=== PATIENT | male | born 1995 | race Caucasian/White ===

== ENCOUNTER 2016-07-12 17:30 | Emergency (ER) | payer BC ==
[~2016-07-12] VITALS: Ht 190.5 cm; Wt 73.5 kg
[2016-07-12 17:53] VITALS: BP 143/94; PULSE 82; RESP 16; TEMP 98.1; O2SAT 100
[2016-07-12 18:14] LABS: BLOOD, URINE NEG (NEG); GLUCOSE,URINE NEG (NEG); KETONE, URINE NEG (NEG); NITRITE,URINE NEG (NEG)
[2016-07-12 18:22] LABS: METHOD OF COLLECTION CLEAN CATCH; URINE COLOR YELLOW (YELLW/STRAW)
[2016-07-12 18:23] LABS: COMMENT (UR) CULT NOT INDICATED; CULTURE IF INDICATED CULT NOT INDICATED; WBC, URINE 0-2 /hpf (0-5)
--- NOTE | 2016-07-12 19:58 | PD ---
HPI Chief Complaint: Complaint Time Seen by Provider: 19:42 Travel History International Travel<30 days: No Contact w/Intl Traveler<30days: No Traveled to known affect area: No History of Present Illness HPI The patient is a 20-year-old male who presents emergency department for left flank pain of several weeks' duration. The patient has pain that radiates from the left flank down into the left scrotum. The patient's pain is intermittent, occasionally associated with dysuria, but he denies any penile discharge. He also complains of pain located over the top the left testicle which is intermittent, but denies any trauma to the left testicle. The patient was sexually active 4 weeks ago, but denies any sexual activity the week prior to the onset of his symptoms. The patient denies any testicular trauma, nausea , vomiting, or abdominal pain. Symptoms are moderate, no alleviating or exacerbating factors. PFSH Past Medical History Medical other: Yes ([place] teeth removed) Tetanus Vaccination: > 5 Years Past Surgical History Tonsillectomy: Yes Social History Alcohol Use: Yes (occ) Tobacco Use: No Substance Use: No Allergies-Medications (Allergen,Severity, Reaction): Coded Allergies: No Known Allergies (Unverified , 07/12/16) Reported Meds & Prescriptions Reported Meds & Active Scripts Active No Active Prescriptions or Reported Medications Review of Systems Except as stated in HPI: all other systems reviewed are Neg General / Constitutional: No: Fever, Chills Cardiovascular: No: Chest Pain or Discomfort Respiratory: No: Shortness of Breath Gastrointestinal: No: Nausea, Vomiting, Diarrhea, Abdominal Pain Genitourinary: Positive: Dysuria, Flank Pain, No: Urgency, Frequency, Hematuria, Discharge Musculoskeletal: No: Myalgias, Arthralgias Skin: No Rash Physical Exam Narrative GENERAL: Awake, alert, pleasant 20-year-old male who appears his stated age is in no acute respiratory distress. SKIN: Warm and dry. HEAD: Atraumatic. Normocephalic. EYES: No injection or drainage. ENT: No nasal bleeding or discharge. Mucous membranes pink and moist. NECK: Trachea midline. No JVD. GASTROINTESTINAL: Abdomen soft, non-tender, nondistended. Back: No CVA tenderness. Genitourinary: Circumcised phallus. No tenderness of the right testicle or right epididymis. Left testicle demonstrates no obvious mass, mild tenderness over the head of the testicle as well as the epididymis, but no erythema noted. MUSCULOSKELETAL: No obvious deformities. No clubbing. No cyanosis. No edema. NEUROLOGICAL: Awake and alert. No obvious cranial nerve deficits. Motor grossly within normal limits. Normal speech. PSYCHIATRIC: Appropriate mood and affect; insight and judgment normal. Data Data Last Documented VS Vital Signs Date Time Temp Pulse Resp B/P Pulse Ox O2 Delivery O2 Flow Rate FiO2 07/12/16 21:00 67 17 145/75 99 Room Air 07/12/16 17:53 98.1 Orders Urinalysis - C+S If Indicated (07/12/16 18:00) Ct Abd/Pel W/O Iv Contrast (07/12/16 19:48) Us Testicles W Doppler (07/12/16 19:48) Sodium Chloride 0.9% Flush (Ns Flush) (07/12/16 20:00) Gc And Chlamydia Pcr (07/12/16 19:58) Labs Laboratory Tests Test 07/12/16 17:55 Urine Collection Type CLEAN CATCH Urine Color YELLOW Urine Turbidity CLEAR Urine pH 7.0 Urine Specific [place] 1.010 Urine Protein NEG mg/dL Urine Glucose (UA) NEG mg/dL Urine Ketones NEG mg/dL Urine Occult Blood NEG Urine Nitrite NEG Urine Bilirubin NEG Urine Leukocyte Esterase NEG Urine WBC 0-2 /hpf Microscopic Urinalysis Comment CULT NOT INDICATED MDM Medical Decision Making Medical Screen Exam Complete: Yes Emergency Medical Condition: Yes Medical Record Reviewed: Yes Interpretation(s) Last Impressions Abdomen/Pelvis CT 07/12/161947 Signed Impressions: Service Date/Time: Tuesday, July 12, 2016 20:01 - CONCLUSION: 1. No acute findings. Mild constipation. No renal or ureteral calculi identified. No evidence for obstructive uropathy. Yaw Hanks MD Laboratory Tests Test 07/12/16 17:55 Urine Collection Type CLEAN CATCH Urine Color YELLOW Urine Turbidity CLEAR Urine pH 7.0 Urine Specific [place] 1.010 Urine Protein NEG mg/dL Urine Glucose (UA) NEG mg/dL Urine Ketones NEG mg/dL Urine Occult Blood NEG Urine Nitrite NEG Urine Bilirubin NEG Urine Leukocyte Esterase NEG Urine WBC 0-2 /hpf Microscopic Urinalysis Comment CULT NOT INDICATED Ultrasound reveals positive testicular blood flow without evidence for torsion. Tiny cyst in the right testicle and epididymis bilaterally. Differential Diagnosis Differential diagnosis includes urethritis, chlamydia infection, gonorrhea infection, epididymitis, testicular torsion, nephrolithiasis, hydronephrosis. Narrative Course UA was sent to lab, was negative. Gonorrhea and chlamydia PCR was ordered. CT of the abdomen and pelvis without contrast an ultrasound of the left testicle was ordered. Diagnosis Primary Impression: Urethritis Patient Instructions: General Instructions Additional Instructions: Medications as directed. Follow-up with urology if symptoms persist. Tylenol and or Motrin as needed. Please provide the patient a copy of his UA results, CT results, and ultrasound results at discharge. Med/Other Pt SpecificInfo: Prescription(s) given Scripts Doxycycline (Monohydrate) (Doxycycline Monohydrate)100 Mg Tab1 Tab PO BID 10 Days Prov:Saravanan Oseguera MD 07/12/16 Disposition: 01 DISCHARGE HOME Condition: Stable Saravanan Oseguera MD Jul 12, 2016 19:57
[2016-07-12] MEDS ORDERED: SODIUM CHLORIDE 0.9% FLUSH 5 ML FLUSH IVF PRN ×2 (20:00→22:30)
--- NOTE | 2016-07-12 20:39 | RADHPO ---
EXAM DATE/TIME: 07/12/2016 20:01 [facility] COMPARISON: No previous studies available for comparison. INDICATIONS : Left sided flank pain. ORAL CONTRAST: No oral contrast ingested. RADIATION DOSE: 8.85 CTDIvol (mGy) MEDICAL HISTORY : None SURGICAL HISTORY : None. ENCOUNTER: Initial ACUITY: 2 weeks PAIN SCALE: 7/10 LOCATION: Left flank TECHNIQUE: Volumetric scanning of the abdomen and pelvis was performed. Using automated exposure control and ad justment of the mA and/or kV according to patient size, radiation dose was kept as low as reasonably achievable to obtain optimal diagnostic quality images. FINDINGS: LOWER LUNGS: The visualized lower lungs are clear. LIVER: Homogeneous density without lesion. There is no dilation of the biliary tree. No calcified gallston es. SPLEEN: Normal size without lesion. PANCREAS: Within normal limits. KIDNEYS: Normal in size and shape. There is no mass, stone, or hydronephrosis. ADRENAL GLANDS: Within normal limits. VASCULAR: There is no aortic aneurysm. BOWEL/MESENTERY: The stomach, small bowel, and colon demonstrate no acute abnormality. There is no free intraperitone al air or fluid. ABDOMINAL WALL: Within normal limits. RETROPERITONEUM: There is no lymphadenopathy. BLADDER: No wall thickening or mass. REPRODUCTIVE: Within normal limits. INGUINAL: There is no lymphadenopathy or hernia. MUSCULOSKELETAL: Within normal limits for patient age. CONCLUSION: 1. No acute findings. Mild constipation. No renal or ureteral calculi identified. No evidence for obs tructive uropathy. Yaw Hanks MD on July 12, 2016 at 20:34 Board Certified Radiologist. This report was verified electronically.
[2016-07-12 21:00] VITALS: BP 145/75; PULSE 67; RESP 17; O2SAT 99
[2016-07-12 22:00] VITALS: BP 147/83; PULSE 61; RESP 16; O2SAT 98
--- NOTE | 2016-07-12 22:24 | RADHPO ---
EXAM DATE/TIME: 07/12/2016 21:13 [facility] COMPARISON: No previous studies available for comparison. INDICATIONS : Scrotal pain. MEDICAL HISTORY : Left scrotal pain. Left flank pain. SURGICAL HISTORY : Tonsillectomy. [place] teeth removal. ENCOUNTER: Initial ACUITY: 3 weeks PAIN SCORE: 4/10 LOCATION: Bilateral Scrotum. MEASUREMENTS: RIGHT TESTICLE: 5.4 x 3.3 x 2.3cm LEFT TESTICLE: 4.7 x 3.5 x 2.7cm FINDINGS: On the right side a tiny 2 mm cyst is noted in the testicle. Testicles normal in size. Left testicle is normal. Small cysts noted in the epididymis bilaterally. No hydrocele is seen. No suspicious mass. Positive testicular blood flow bilaterally. CONCLUSION: 1. Positive testicular blood flow without evidence for torsion. Tiny cysts in the right testicle and epididymis bilaterally. Yaw Hanks MD on July 12, 2016 at 22:20 Board Certified Radiologist. This report was verified electronically.
[2016-07-12] MEDS ORDERED: DOXY1TAB13 PO (22:26)
[2016-07-12] MEDS ORDERED: LIDOCAINE HCL 1% 50 ML VIAL XX ONE (22:30)
[2016-07-12] MEDS ORDERED: cefTRIAXone 250 MG VIAL IM ONE (22:30)
== END 2016-07-12 23:09 | disposition home or self-care (01) ==
LOC: PHED 17:30
DX: N34.2 Other urethritis (principal)
CPT/HCPCS: 74176; 76870; 81001; 93975; 96372; 99284; J0696